=== PATIENT | male | born 1985 | race Caucasian/White ===

== ENCOUNTER 2017-02-09 09:09 | Emergency (ER) | payer OTHER ==
[2017-02-09 09:42] VITALS: BP 141/76
--- NOTE | 2017-02-09 10:42 | RAD ---
HISTORY: Left anterior chest wall pain COMPARISONS: January 16, 2004 VIEWS: 2: Frontal dual-energy and lateral views of the chest. FINDINGS: CARDIOMEDIASTINAL SILHOUETTE: The cardiomediastinal silhouette is normal. BARTOLOME: The bartolome are normal. PLEURA: The costophrenic angles are sharp. No pleural abnormalities are noted. LUNG PARENCHYMA: The lungs are clear. ABDOMEN: The upper abdomen is clear. There is no subphrenic gas. BONES AND SOFT TISSUES: No bone or soft tissue abnormalities are noted. OTHER: None. IMPRESSION: NO ACTIVE CARDIOPULMONARY DISEASE.
--- NOTE | 2017-02-21 16:56 | UC ---
Kurtis Weir Anna, scribed for Norma San MD on 02/09/17 at 1002 . Cardiac HPI - HPI Summary HPI Summary: Patient is a 31 y/o male coming [place] [facility] [place] with sudden onset of constant left chest wall pain that began at 0300 this morning. He reports that he slept with his arm up above his head last night, which he does not normally do. Upon waking, he felt a pulling sensation in his chest muscles on the left side. He denies numbness. He is right-hand dominant. He denies SOB. The pain is exacerbated by rapid movement. He took Tylenol this morning. He did not have any alcohol or cold medicine last night. He had shingles two years ago, under both arms, but his current symptoms do not feel like that. - History of Current Complaint Chief Complaint: UCChestPain Stated Complaint: SHOULDER/ARM PAIN Time Seen by Provider: 02/09/17 09:53 Hx Obtained From: Patient - Allergy/Home Medications Allergies/Adverse Reactions: Allergies Allergy/AdvReac Type Severity Reaction Status Date / Time No Known Allergies Allergy Verified 08/30/14 18:35 Home Medications: Home Medications Acetaminophen TAB* [Tylenol TAB*] 2 tab PO PRN 02/09/17 [History] PMH/Surg Hx/FS Hx/Imm Hx - Additional Past Medical History Additional PMH: Hx shingles, 2014 Previously Healthy: Yes Endocrine History Of: Denies: Diabetes, Thyroid Disease Cardiovascular History Of: Reports: Cardiac Disorders - murmur as a child Denies: Hypertension Respiratory History Of: Denies: COPD, Asthma GI/ History Of: Denies: Ulcer - Surgical History Surgical History: None - Family History Known Family History: Negative: Seizure Disorder - Social History Occupation: Employed Full-time Alcohol Use: None Substance Use Type: None Smoking Status (MU): Heavy Every Day Tobacco Smoker Type: Cigarettes Amount Used/How Often: 1 ppd Have You Smoked in the Last Year: Yes - Immunization History Most Recent Influenza Vaccination: 2016 FALL Most Recent Tetanus Shot: 2013 Most Recent Pneumonia Vaccination: NEVER Review of Systems Constitutional: Negative Skin: Negative Eyes: Negative ENT: Negative Respiratory: Negative Cardiovascular: Chest Pain - See HPI Gastrointestinal: Negative Genitourinary: Negative Motor: Negative Neurovascular: Negative Musculoskeletal: Myalgia Neurological: Negative Psychological: Negative All Other Systems Reviewed And Are Negative: Yes Physical Exam Triage Information Reviewed: Yes Appearance: Well-Nourished Vital Signs: Initial Vital Signs Temp 97.7 F 02/09/17 09:39 Pulse 60 02/09/17 09:39 Resp 18 02/09/17 09:39 BP 141/76 02/09/17 09:39 Pulse Ox 100 02/09/17 09:39 Vital Signs Reviewed: Yes Eye Exam: Normal ENT Exam: Normal Dental Exam: Normal Neck exam: Normal Neck: Positive: Other: - No adenopathy appreciated Respiratory Exam: Other - subj tenderness chest wall, no crepitus. No splinting. Respiratory: Positive: Lungs clear, Normal breath sounds, No respiratory distress, No accessory muscle use Cardiovascular: Positive: RRR, No Murmur, Pulses Normal, Brisk Capillary Refill Abdominal Exam: Normal Abdomen Description: Positive: Nontender, No Organomegaly, Soft Bowel Sounds: Positive: Present Musculoskeletal Exam: Normal Musculoskeletal: Positive: Strength Intact Neurological Exam: Normal - Nonfocal, grossly intact Psychological Exam: Normal - Conversing easily and appropriately Diagnostics - Radiology CXR Xray Interpretation: No Acute Changes Radiology Interpretation Completed By: Radiologist - IMPRESSION: NO ACTIVE CARDIOPULMONARY DISEASE. - EKG Cardiac Rate: NL - 72 bpm NSR 0931. DE 146. QTc 415. No old EKG for comparison. Cardiac Rhythm: Sinus: Normal - Assessment/Plan Course Of Treatment: Discussed OTC pain management and treatment with patient. He thinks a sling would aggravate the pain. No new problems in CCC. Reviewed CXR / EKG with pt. Doubt cardiac primary etiology. Questions answered to the best of my ability. Considered below differential diagnoses. Symptoms c/w chest wall pain, costochondritis. D/w pt need for ED evaluation if worse or new symptoms. - Clinical Impression Provider Diagnoses: chest wall pain Discharge - Discharge Plan Condition: Stable Disposition: HOME Patient Education Materials: Chest Wall Pain (ED) Forms: *Work Release Referrals: [facility] [Outside] Additional Instructions: Ibuprofen per packaging instructions as needed for pain / inflammation. Recommend taking ibuprofen at least twice a day for the next 2 days. Ok to add acetaminophen (tylenol) as needed for pain, per packaging instructions. Follow up with a primary care physician as soon as you are able. Seek medical attention sooner for worse or new problems. The documentation as recorded by the Kurtis chávez Anna accurately reflects the service I personally performed and the decisions made by me, Norma San MD.
== END 2017-02-09 11:06 | disposition home or self-care (01) ==
LOC: UCEAST 09:09
DX: R07.89 Other chest pain (principal); F17.210 Nicotine dependence, cigarettes, uncomplicated
CPT/HCPCS: 71020; 93005; 99211; G0463

== ENCOUNTER 2018-07-08 18:43 | Emergency (ER) | payer SELFPAY ==
[2018-07-08] MEDS ORDERED: Tetracaine 0.5% OPTH.SOL 4 ML* 1 DROP BTL ONE (20:28)
[2018-07-08] MEDS ORDERED: Fluorescein Sod TOPICAL 0.6* 0.6 MG TEST OPHTHALMIC ONE (20:28)
[2018-07-08] MEDS ORDERED: Ciprofloxacin 0.3% OPTH.SOL* 2.5 ML BTL RIGHT EYE ONE (20:47)
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
[2018-07-08 21:53] VITALS: BP 135/71
== END 2018-07-08 21:51 | disposition home or self-care (01) ==
LOC: ED 18:43
DX: S05.01XA Injury of conjunctiva and corneal abrasion without foreign body, right eye, initial encounter (principal); X58.XXXA Exposure to other specified factors, initial encounter; Y93.9 Activity, unspecified; Y92.9 Unspecified place or not applicable; F17.210 Nicotine dependence, cigarettes, uncomplicated
CPT/HCPCS: 99282; A9270-GY